=== PATIENT | female | born 1955 | race Hispanic/Latino ===

== ENCOUNTER 2024-02-20 13:27 | Emergency (ER) | payer MEDICARE ==
[~2024-02-20] VITALS: Ht 154.9 cm; Wt 54.4 kg
[2024-02-20 13:32] VITALS: PULSE 89; RESP 16; TEMP 98.9; O2SAT 96
[2024-02-20] MEDS ORDERED: MEDROL4 M2 PO (13:43)
[2024-02-20] MEDS: HYDROCODONE/APAP 5MG-325MG TAB PO ONE (13:48)
== END 2024-02-20 13:59 | disposition home or self-care (01) ==
LOC: ER 13:36
DX: M25.551 Pain in right hip (principal); M70.61 Trochanteric bursitis, right hip; R51.9 Headache, unspecified; F32.A Depression, unspecified; F17.210 Nicotine dependence, cigarettes, uncomplicated
CPT/HCPCS: 99282

== ENCOUNTER 2024-03-03 11:21 | Emergency (ER) | payer MEDICARE ==
[~2024-03-03] VITALS: Ht 154.9 cm; Wt 54.4 kg
[~2024-03-03 11:21] MED LIST: MEDROL4 M2 PO
[2024-03-03 11:35] VITALS: TEMP 99
[2024-03-03] MEDS: KETOROLAC TROMETHAMINE 30 MG/ML VIAL IV STA (12:18)
[2024-03-03 13:03] VITALS: PULSE 77; RESP 16; O2SAT 97
== END 2024-03-03 13:05 | disposition home or self-care (01) ==
LOC: ER 11:24
DX: M25.551 Pain in right hip (principal); W01.198A Fall on same level from slipping, tripping and stumbling with subsequent striking against other object, initial encounter; Y93.01 Activity, walking, marching and hiking; Y92.89 Other specified places as the place of occurrence of the external cause; F32.A Depression, unspecified
CPT/HCPCS: 73502; 99283; J1885